=== PATIENT | female | born 1990 | race Caucasian/White ===

== ENCOUNTER 2016-09-19 10:30 | Emergency (ER) | payer BC ==
[~2016-09-19] VITALS: Ht 154.9 cm; Wt 40.8 kg
[2016-09-19 10:30] VITALS: BP 105/62
== END 2016-09-19 11:57 | disposition home or self-care (01) ==
LOC: ER 10:32
DX: J02.9 Acute pharyngitis, unspecified (principal)
CPT/HCPCS: 99282; A4606; Z7610

== ENCOUNTER 2016-09-29 10:54 | Emergency (ER) | payer BC ==
[~2016-09-29] VITALS: Ht 152.4 cm; Wt 43.1 kg
== END 2016-09-29 11:29 | disposition home or self-care (01) ==
LOC: ER 10:55
DX: H01.001 Unspecified blepharitis right upper eyelid (principal)
CPT/HCPCS: 99283; A4606